=== PATIENT | female | born 1970 | race African-American/Black ===

== ENCOUNTER 2021-10-25 13:44 | Emergency (ER) | payer MEDICAID ==
[~2021-10-25] VITALS: Ht 152.4 cm; Wt 120.9 kg
[2021-10-25] MEDS ORDERED: KETOROLAC TROMETH 60MG/2ML VIAL IM ONE (14:00)
[2021-10-25] MEDS ORDERED: TRAM50TA2 PO (14:41)
[2021-10-25 14:55] LABS: Urine Bacteria FEW /hpf (None Seen); Urine Blood 1+ /uL (Negative); Urine Mucus FEW (None Seen); Urine Specific Gravity 1.026 (1.001-1.035); Urine WBC 1 /hpf (0 - 5)
[2021-10-25 15:04] VITALS: BP 159/89
== END 2021-10-25 14:18 | disposition home or self-care (01) ==
LOC: ER 13:44
DX: M54.41 Lumbago with sciatica, right side (principal); I10 Essential (primary) hypertension
CPT/HCPCS: 81001; 96372; 99283; J1885